=== PATIENT | male | born 1995 | race Two or more races ===

== ENCOUNTER 2019-01-29 22:30 | Emergency (ER) | payer BC ==
[2019-01-29 23:42] LABS: ABS Basophils 0 10^3/ul (0-0.2); ABS Eosinophils 0.1 10^3/ul (0-0.6); ABS Monocytes 0.7 10^3/ul (0-0.8); ABS Neutrophils 4.5 10^3/ul (1.5-7.7); ABS Nucleated RBC 0 10^3/ul; Eosinophil % 1.6 %; Hematocrit 51 % (36-46); Hemoglobin 17.9 g/dL (14.0-18.0); Mean Corpuscular HGB Conc 35 g/dL (31-36); Mean Corpuscular Hemoglobin 31 pg (27-31); Mean Corpuscular Volume 88 fL (80-94); Mean Platelet Volume 7.3 fL (7.4-10.4); Nucleated Red Blood Cells % 0.1; Platelet Count 264 10^3/uL (150-450); Red Blood Count 5.83 10^6 /uL (4.18-5.48); Red Cell Distribution Width 12 % (10.5-15); White Blood Count 8.4 10^3/uL (3.5-10.8)
--- NOTE | 2019-01-29 23:50 | ED ---
- HPI Summary HPI Summary: 23-year-old male presents with body fluid exposure. He states that he was on a call when a person had some blood around her mouth. She ended up spitting onto his face. Unsure if it went into his mouth. He does not know anything about the patient. No IV track alcala seen. Person was intoxicated. He has a history of hemophilia. - History of Current Complaint Chief Complaint: EDExposureBodyFluid Stated Complaint: EXPOSURE BODILY FLUIDS PER PT Time Seen by Provider: 01/29/19 23:09 PMH/Surg Hx/FS Hx/Imm Hx Endocrine/Hematology History: Denies: Hx Anticoagulant Therapy Cardiovascular History: Reports: Other Cardiovascular Problems/Disorders - Hemophilia. - Surgical History Surgery Procedure, Year, and Place: RT ANKLE/ CHEST PORT - Immunization History Date of Tetanus Vaccine: utd Date of Influenza Vaccine: unk Infectious Disease History: No Infectious Disease History: Denies: Traveled Outside the [place] in Last 30 Days - Family History Known Family History: Negative: Hypertension - Social History Alcohol Use: Occasionally Hx Substance Use: No Substance Use Type: Reports: None Hx Tobacco Use: No Smoking Status (MU): Never Smoked Tobacco Review of Systems Negative: Fever Negative: Chest Pain Negative: Shortness Of Breath Positive: Other - body fluid exposure All Other Systems Reviewed And Are Negative: Yes Physical Exam Triage Information Reviewed: Yes Vital Signs On Initial Exam: Initial Vitals Temp Pulse Resp BP Pulse Ox 99.4 F 72 16 146/95 97 01/29/19 22:35 01/29/19 22:35 01/29/19 22:35 01/29/19 22:35 01/29/19 22:35 Vital Signs Reviewed: Yes Appearance: Positive: Well-Appearing Skin: Positive: Warm, Dry Head/Face: Positive: Normal Head/Face Inspection Eyes: Positive: Normal, Conjunctiva Clear ENT: Positive: Pharynx normal Respiratory/Lung Sounds: Positive: Clear to Auscultation, Breath Sounds Present Cardiovascular: Positive: Normal, RRR Musculoskeletal: Positive: Normal Neurological: Positive: Normal Psychiatric: Positive: Normal Diagnostics - Vital Signs Vital Signs Temp Pulse Resp BP Pulse Ox 01/29/19 22:35 99.4 F 72 16 146/95 97 - Laboratory Lab Results: Lab Results 01/29/19 Range/Units 23:33 WBC 8.4 (3.5-10.8) 10^3/uL RBC 5.83 H (4.18-5.48) 10^6 /uL Hgb 17.9 (14.0-18.0) g/dL Hct 51 H (36-46) % MCV 88 (80-94) fL MCH 31 (27-31) pg MCHC 35 (31-36) g/dL RDW 12 (10.5-15) % Plt Count 264 (150-450) 10^3/uL MPV 7.3 L (7.4-10.4) fL Neut % (Auto) 53.7 % Lymph % (Auto) 36.0 % [place] % (Auto) 8.1 % Eos % (Auto) 1.6 % Baso % (Auto) 0.6 % Absolute Neuts (auto) 4.5 (1.5-7.7) 10^3/ul Absolute Lymphs (auto) 3.0 (1.0-4.8) 10^3/ul Absolute Monos (auto) 0.7 (0-0.8) 10^3/ul Absolute Eos (auto) 0.1 (0-0.6) 10^3/ul Absolute Basos (auto) 0 (0-0.2) 10^3/ul Absolute Nucleated RBC 0 10^3/ul Nucleated RBC % 0.1 Result Diagrams: 01/29/19 23:33 01/29/19 23:33 Lab Statement: Any lab studies that have been ordered have been reviewed, and results considered in the medical decision making process. [place] Course/Dx - Course Course Of Treatment: 23-year-old male presents with body fluid exposure. He states that he was on a call when a person had some blood around her mouth. She ended up spitting onto his face. Unsure if it went into his mouth. He does not know anything about the patient. No IV track alcala seen. Person was intoxicated. He has a history of hemophilia. On exam has normal physical exam. Discussed risks and benefits of prophylaxis patient decided not to go pep. told follow up with primary. patient understand and agrees with plan. - Diagnoses Provider Diagnoses: Exposure to blood or body fluid Discharge - Sign-Out/Discharge Documenting (check all that apply): Patient Departure Patient Received Moderate/Deep Sedation with Procedure: No - Discharge Plan Condition: Good Disposition: HOME Referrals: Jass Restrepo MD [Medical Doctor] - Marquez Bright MD [Primary Care Provider] - Additional Instructions: follow up with primary or occupational health Return to ED if develop any new or worsening symptoms - Billing Disposition and Condition Condition: GOOD Disposition: Home
[2019-01-30 00:09] LABS: Rapid HIV 1 Nonreactive (Nonreactive)
[2019-01-30 00:11] LABS: Albumin 4.9 g/dL (3.2-5.2); Albumin/Globulin Ratio 1.8 (1-3); BUN/Creatinine Ratio 19.6 (8-20); Calcium 9.5 mg/dL (8.6-10.3); EGFR African American 102.7 (>60); EGFR Non-African American 84.9 (>60); Globulin 2.7 g/dL (2-4); Potassium 3.9 mmol/L (3.5-5.0); Total Bilirubin 1.9 mg/dL (0.2-1.0); Total Protein 7.6 g/dL (6.4-8.9)
[2019-01-30 00:25] VITALS: BP 135/76
--- NOTE | 2019-02-01 14:44 | PN ---
Progress Note - Progress Note Date of Service: 02/01/19 Note: Mr. Talbert called for the results of the hepatitis exposure panel. Results are not yet available as analyzer is down. Tech is here today to work on machine. Mr. Talbert was advised of this and advised that results would likely be available tomorrow or the next day. Patient said he understood.
[2019-02-02 12:54] LABS: Hepatitis B Surface Antigen Nonreactive (Nonreactive)
[2019-02-02 13:19] LABS: Hepatitis C Antibody Nonreactive (Nonreactive)
[2019-02-02 13:29] LABS: Hepatitis B Surface AB Not Immune (Immune)
== END 2019-01-30 | disposition home or self-care (01) ==
LOC: ED 22:30
DX: Z77.21 Contact with and (suspected) exposure to potentially hazardous body fluids (principal); Z86.2 Personal history of diseases of the blood and blood-forming organs and certain disorders involving the immune mechanism; Y99.0 Civilian activity done for income or pay
CPT/HCPCS: 36415; 80053; 85025; 86703; 86706; 86803; 87340; 99282

== ENCOUNTER 2019-04-28 12:22 | Emergency (ER) | payer BC ==
[2019-04-28 13:08] VITALS: BP 139/78
--- NOTE | 2019-04-28 14:00 | UC ---
General HPI - HPI Summary HPI Summary: 23-year-old male presents with one-week history of a tender swollen lymph node to the right side of his neck. Patient states that he has been noticing that whenever he turns his neck to the right he notices some tenderness and he has been able to palpate what he believes is a swollen lymph node. Denies fever, chills, ear pain, sore throat, or dental pain. - History of Current Complaint Chief Complaint: UCGeneralIllness Stated Complaint: SWOLLEN LYMPH NODE Time Seen by Provider: 04/28/19 13:33 Hx Obtained From: Patient Pain Intensity: 5 - Allergy/Home Medications Allergies/Adverse Reactions: Allergies Allergy/AdvReac Type Severity Reaction Status Date / Time aspirin Allergy See Comment Verified 04/28/19 13:00 peanut Allergy Anaphylatic Verified 04/28/19 13:00 Shock Home Medications: Home Medications [email or web address].[email or web address] Rec,Fc Fusion [Eloctate] 1,000 unit IV ONCE 04/28/19 [History Confirmed 04/28/19] Emicizumab-Kxwh [Hemlibra] 30 mg SC WEEKLY 04/28/19 [History Confirmed 04/28/19] PMH/Surg Hx/FS Hx/Imm Hx - Additional Past Medical History Additional PMH: Hemophilia Previously Healthy: Yes Other History Of: Negative For: Anticoagulant Therapy - Surgical History Surgical History: Yes Surgery Procedure, Year, and Place: RT ANKLE. CHEST PORT insertion and removal - Family History Known Family History: Positive: Non-Contributory - Social History Occupation: Employed Full-time Lives: Alone Alcohol Use: Occasionally Substance Use Type: None Smoking Status (MU): Never Smoked Tobacco Review of Systems All Other Systems Reviewed And Are Negative: Yes Constitutional: Negative: Fever, Chills Skin: Negative: Rash Eyes: Negative: Drainage, Eye Redness ENT: Negative: Dental Pain, Sore Throat, Ear Ache, Nasal Discharge, Sinus Congestion, Sinus Pain/Tenderness Respiratory: Positive: Negative Cardiovascular: Positive: Negative Gastrointestinal: Positive: Negative Genitourinary: Positive: Negative Musculoskeletal: Positive: Negative Neurological: Positive: Negative Is Patient Immunocompromised?: No Physical Exam - Summary Physical Exam Summary: GENERAL APPEARANCE: Well developed, well nourished, alert and cooperative, and appears to be in no acute distress. EARS: External auditory canals and tympanic membranes clear, hearing grossly intact. NOSE: No nasal discharge. THROAT: Pharynx normal. No tonsilar inflammation, swelling, exudate, or lesions. Uvula midline. Oral cavity normal. Teeth and gingiva in good general condition. NECK: Neck supple, non-tender. Single tender, firm, mobile right anterior palpable lymph node approximately 1 cm in diameter. CARDIAC: Normal S1 and S2. No S3, S4 or murmurs. Rhythm is regular. There is no peripheral edema, cyanosis or pallor. Extremities are warm and well perfused. Capillary refill is less than 2 seconds. Peripheral pulses intact. LUNGS: Clear to auscultation without rales, rhonchi, wheezing or diminished breath sounds. ABDOMEN: Positive bowel sounds. Soft, nondistended, nontender. No guarding or rebound. No masses or hepatosplenomegally. MUSKULOSKELETAL: ROM intact to all extremities. No joint erythema or tenderness. Normal muscular development. Normal gait. SKIN: Skin normal color, texture and turgor with no lesions or eruptions. Triage Information Reviewed: Yes Vital Signs: Initial Vital Signs Temp 98.6 F 04/28/19 13:02 Pulse 83 04/28/19 13:02 Resp 16 04/28/19 13:02 BP 139/78 04/28/19 13:02 Pulse Ox 95 04/28/19 13:02 Vital Signs Reviewed: Yes Course/Dx - Course Course Of Treatment: 23-year-old male presents with one-week history of a tender swollen lymph node to the right side of his neck. Patient states that he has been noticing that whenever he turns his neck to the right he notices some tenderness and he has been able to palpate what he believes is a swollen lymph node. Denies fever, chills, ear pain, sore throat, or dental pain. Afebrile. Vital signs stable. Patient had a single tender, firm, mobile right anterior palpable lymph node approximately 1 cm in diameter and otherwise unremarkable exam. Discussed with the patient that with there being no obvious signs of infection that I would recommend watchful waiting at this time as most idiopathic swollen lymph nodes will resolve on their own. He is to follow-up with his primary care provider in one week if symptoms do not improve. Anticipatory guidance and warning symptoms were reviewed with the patient. Verbalizes understanding and agrees with plan of care. - Differential Dx - Multi-Symptom Differential Diagnoses: Other - Otitis media, pharyngitits, uri - Diagnoses Provider Diagnosis: Enlarged lymph node in neck Discharge - Sign-Out/Discharge Documenting (check all that apply): Patient Departure All imaging exams completed and their final reports reviewed: No Studies - Discharge Plan Condition: Stable Disposition: HOME Patient Education Materials: Lymphadenopathy (ED) Referrals: Marquez Bright MD [Primary Care Provider] - 7 Days Additional Instructions: You had a mildly swollen lymph node in your neck without any evidence of an infectious process. Typically these will resolve on their own without any treatment. Follow up with your primary care provider in 1 week if no improvement in symptoms. Seek immediate medical attention if you develop a persistent fever greater than 100.5 F, increased swelling of the neck, you are unable to swallow, have difficulty breathing, or any worsening of symptoms. - Billing Disposition and Condition Condition: STABLE Disposition: Home
== END 2019-04-28 14:08 | disposition home or self-care (01) ==
LOC: UCEAST 12:22
DX: R59.0 Localized enlarged lymph nodes (principal)
CPT/HCPCS: 99211; G0463